=== PATIENT | male | born 1995 | race Caucasian/White ===

== ENCOUNTER 2024-08-23 12:18 | Emergency (ER) | payer BC ==
[2024-08-23] MEDS ORDERED: LIDOcaine HCl 1% (Local Anesth.) 20 ML VIAL STI ONE (13:50)
[2024-08-23] MEDS ORDERED: BUPIVACAINE HCL PF 0.5 % 50 MG/10 ML SDV STI ONE (13:50)
[2024-08-23] MEDS ORDERED: TRAMADOL HYDROC50 M1 PO (15:04)
[2024-08-23] MEDS ORDERED: traMADol HCL 50 MG/TAB PO ONE (15:10)
[2024-08-23 15:26] VITALS: BP 120/74
[2024-08-23] MEDS ORDERED: NAPROXEN500 MG PO (16:29)
== END 2024-08-23 15:26 | disposition home or self-care (01) | DRG 563 ==
LOC: ED 12:18
PROC: 0QSQXZZ Reposition Right Toe Phalanx, External Approach (ICD-10-PCS; principal; 2024-08-23)
DX: S92.511A Displaced fracture of proximal phalanx of right lesser toe(s), initial encounter for closed fracture (principal); W54.1XXA Struck by dog, initial encounter; Y92.009 Unspecified place in unspecified non-institutional (private) residence as the place of occurrence of the external cause